=== PATIENT | male | born 1975 | race Caucasian/White ===

== ENCOUNTER 2022-08-22 20:58 | Emergency (ER) | payer BC ==
[~2022-08-22] VITALS: Ht 177.8 cm; Wt 97.5 kg
[2022-08-22 21:18] VITALS: BP 170/103
[2022-08-22 22:21] LABS: BASOPHIL # 0.1 10^3/uL (0.0-0.1); BASOPHIL % 0.6 % (0.0-0.2); EOSINOPHIL # 0.3 10^3/uL (0.0-0.2); LYMPHOCYTES # 3.32 10^3/uL1 (1.0-4.8); LYMPHOCYTES % 30.5 % (24.0-44.0); MEAN CORP HGB 31.4 pg (26-34); MONOCYTES # 0.7 10^3/uL (0.3-0.8); MONOCYTES % 6.6 % (5.0-12.0); NEUTROPHIL # 6.4 10^3/uL (1.8-7.7); NEUTROPHILS % 58.7 % (41.0-85.0); PLATELET COUNT 249 10^3/uL (150-400); RED CELL DISTRIBUTION WIDTH 13.7 % (11.5-14.5)
[2022-08-22 22:42] LABS: CARBON DIOXIDE 30.2 mmol/L (20.0-32)
--- NOTE | 2022-08-22 22:46 | DIREP ---
PROCEDURE:CT HEAD OR BRAIN W/O CONTRAST COMPARISON:None. INDICATIONS:Dizziness TECHNIQUE:CT images were created without intravenous contrast. FINDINGS: VENTRICLES:The ventricles are normal in size and configuration. CEREBRUM:Encephalomalacia within the medial left occipital lobe. No parenchymal abnormality otherwise present. CEREBELLUM:Encephalomalacia within the left cerebellar hemisphere. BRAINSTEM:Negative. BASAL CISTERNS:Negative. HEMORRHAGE (Vol L*W*H*.52):No MASS LESION:No ACUTE INFARCT:No SKULL:Normal. SINUSES:Normal. 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 No acute abnormality noted. Dictated by: Marlon Husain M.D. on 08/22/2022 at 10:42 PM
--- NOTE | 2022-08-22 22:50 | ER.PDOC ---
General Chief Complaint: Requesting Medical Care Stated Complaint: DIZZINESS, HBP TRAVEL OUT OF US: No Time seen by MD: 22:48 Source: patient Exam Limitations: no limitations History of Present Illness Initial Comments Elevated blood pressure and dizziness today. Patient has high blood pressure but stopped taking medications for several months. He does not go to see a doctor. No chest pain or shortness of breath. Severity: moderate Associated Symptoms: other (dizziness) Past Medical History Medical History: CVA/TIA/stroke, hypertension Surgical History: cholecystectomy Family History Significant Family History: no pertinent family hx Social History Smoking: non-smoker Alcohol Use: occassionally Drug Use: none Review of Systems Constitutional: no symptoms reported EENTM: see HPI Respiratory: no symptoms reported Cardiovascular: no symptoms reported Gastrointestinal: no symptoms reported All Other Systems: Reviewed and Negative Physical Exam General Appearance: No Apparent Distress, WD/WN Neck: Non-Tender, Full Range of Motion, Supple, Normal Inspection Respiratory: chest non-tender, lungs clear, normal breath sounds, no respiratory distress, no accessory muscle use CVS: reg rate & rhythm, no murmur, no gallop, pulses nml, nml capillary refill Gastrointestinal: Normal Bowel Sounds, No Organomegaly, No Pulsatile Mass, Non Tender Back: Normal Inspection, No CVA Tenderness Extremities: Normal Range of Motion Neurologic/Psychiatric: permastone applicator II-XII NML as Tested, No Motor/Sensory Deficits, Alert, Normal Mood/Affect Skin: Normal Color Results/Orders Results/Orders Orders - TILA HERRERA MD Cbc With Auto Diff (08/22/22 22:14) Comprehensive Metabolic Panel (08/22/22 22:14) Troponin I High Sensitivity (08/22/22 22:14) Ct Head Wo Contrast (08/22/22 22:14) Xr Chest 1v (08/22/22 22:14) Vital Signs Date Time Temp Pulse Resp B/P (MAP) Pulse Ox O2 Delivery O2 Flow Rate FiO2 08/22/22 21:18 98.4 83 20 97 08/22/22 21:18 98.4 83 20 97 Room Air* 0 21 08/22/22 21:18 98.4 83 20 Laboratory Tests Test 08/22/22 21:30 White Blood Count 10.9 10^3/uL (4.5-11.0) Red Blood Count 5.51 10^6/uL (4.50-5.90) Hemoglobin 17.3 g/dL (13.9-16.3) H Hematocrit 50.4 % (37.0-53.0) Mean Corpuscular Volume 91.5 fL (78-100) Mean Corpuscular Hemoglobin 31.4 pg (26-34) Mean Corpuscular Hemoglobin Concent 34.3 g/dL (33-36.5) Red Cell Distribution Width 13.7 % (11.5-14.5) Platelet Count 249 10^3/uL (150-400) Mean Platelet Volume 10.5 fL (7.8-11.0) Neutrophils (%) (Auto) 58.7 % (41.0-85.0) Lymphocytes (%) (Auto) 30.5 % (24.0-44.0) Monocytes (%) (Auto) 6.6 % (5.0-12.0) Neutrophils # (Auto) 6.4 10^3/uL (1.8-7.7) Lymphocytes # (Auto) 3.32 10^3/uL1 (1.0-4.8) Monocytes # (Auto) 0.7 10^3/uL (0.3-0.8) Absolute Immature Granulocyte (auto 0.07 10^3 u/L (0-2) Absolute Eosinophils (auto) 0.3 10^3/uL (0.0-0.2) H Immature Granulocytes % 0.60 % (0.00-0.50) H Eosinophils % 3.0 % (0.0-5.0) Basophils % 0.6 % (0.0-0.2) H Basophils # 0.1 10^3/uL (0.0-0.1) Sodium Level 140 mmol/L (132-145) Potassium Level 4.1 mmol/L (3.6-5.2) Chloride Level 100.0 mmol/L (96-109) Carbon Dioxide Level 30.2 mmol/L (20.0-32) Anion Gap 13.9 Blood Urea Nitrogen 7 mg/dL (7-18) Creatinine 1.36 mg/dL (0.59-1.40) Estimated GFR () 68.6 (>/=60) Est GFR (CKD-EPI)(Non-Afr [place]) 56.7 (>/=60) BUN/Creatinine Ratio 5.0 Glucose Level 118 mg/dL (70-110) H Calcium Level 9.7 mg/dL (8.4-10.5) Total Bilirubin 0.2 mg/dL (0.2-1.0) Aspartate Amino Transferase (AST) 25 U/L (0-35) Alanine Aminotransferase (ALT) 58 U/L (12-78) Alkaline Phosphatase 105 U/L (50-136) Troponin I High Sensitivity 6 ng/L (0-75) Total Protein 6.8 g/dL (6.4-8.2) Albumin 3.9 g/dL (3.4-5.0) Globulin 2.9 Albumin/Globulin Ratio 1.344 Progress Progress Chest x-ray showed no acute process. CT head showed no acute intracranial abnormality. Glucose is 118, rest of chemistry is unremarkable. Troponin is 6. CBC is normal. Patient's blood pressure improved here to 151/86. EKG/XRAY/CT/US EKG: NSR EKG Comments: HR 45, normal P axis ER DEPART Departure Time of Disposition: 23:14 Disposition: 01 HOME / SELF CARE / HOMELESS Impression: Primary Impression: Uncontrolled hypertension Additional Impression: Non compliance w medication regimen Condition: Improved Referrals: PCP,UNKNOWN (PCP) PRIMARY CARE PROVIDER Additional Instructions: Lisinopril Follow-up with your PCP in 2 to 3 days Return to ED if worsening or concerns Duration or Time Spent with Pa: 30 min Problem Qualifiers TILA HERRERA MD Aug 22, 2022 22:50
--- NOTE | 2022-08-22 22:54 | DIREP ---
PROCEDURE:CHEST 1 VIEW COMPARISON:None. INDICATIONS:CHEST PAIN FINDINGS: LUNGS/PLEURA:No significant pulmonary parenchymal abnormalities. No effusions. VASCULATURE:Normal. Unremarkable pulmonary vasculature. CARDIAC:Normal. No cardiac silhouette abnormality or cardiomegaly. MEDIASTINUM:Normal. No visible mass or adenopathy. BONES:Normal. No fracture or visible bony lesion. OTHER:Negative. CONCLUSION:No acute pulmonary process. Dictated by: Malron Husain M.D. on 08/22/2022 at 10:51 PM
--- NOTE | 2022-08-23 09:53 | PCM.EKG ---
[facility] Test Date: 2022-08-22 Test Time: 21:37:08 Pat Name: FELICITY GIL Department: Room: Gender: M [employer] Location Manager: EC : 1975 Requested By: TILA HERRERA Order Number: [id number] Reading MD: Tila HERRERA Measurements Intervals [place] Rate: 76 P: 56 MT: 142 QRS: 50 QRSD: 79 T: 25 QT: 364 QTc: 410 Interpretive Statements Sinus rhythm No previous ECG available for comparison Electronically Signed On 08-25-2022 7:12:36 [employer]SULT[employer] by Tila HERRERA Please click the below link to view image of tracing.
== END 2022-08-23 | disposition home or self-care (01) ==
LOC: ER 20:58
DX: I10 Essential (primary) hypertension (principal); Z90.49 Acquired absence of other specified parts of digestive tract; Z86.73 Personal history of transient ischemic attack (TIA), and cerebral infarction without residual deficits
CPT/HCPCS: 36415; 70450; 71045; 80053; 84484; 85025; 93005; 99284

== ENCOUNTER 2023-06-23 10:59 | Emergency (ER) | payer SELFPAY ==
[~2023-06-23] VITALS: Ht 177.8 cm; Wt 99.8 kg
[2023-06-23 11:04] VITALS: BP 130/68; PULSE 57; RESP 16; TEMP 98.2; O2SAT 97
[2023-06-23] MEDS ORDERED: BACTRIM DS PO STA (11:34)
[2023-06-23] MEDS ORDERED: NAPROXEN 500MG PO STA (11:34)
[2023-06-23] MEDS ORDERED: NAPROXEN 500MG PO ONE (11:38)
[2023-06-23] MEDS ORDERED: BOOSTRIX IM ONE ×2 (11:38→12:00)
[2023-06-23] MEDS ORDERED: BACTRIM DS ONE (11:38)
== END 2023-06-23 12:08 | disposition home or self-care (01) ==
LOC: ER 10:59
DX: K61.1 Rectal abscess (principal); I10 Essential (primary) hypertension; Z86.73 Personal history of transient ischemic attack (TIA), and cerebral infarction without residual deficits; Z90.49 Acquired absence of other specified parts of digestive tract
CPT/HCPCS: 90471; 90715; 99283